=== PATIENT | male | born 1955 | race Caucasian/White ===

== ENCOUNTER 2018-01-11 17:53 | Inpatient (IN) | payer MEDICAID, OTHER ==
[~2018-01-11] VITALS: Ht 175.3 cm; Wt 79.4 kg
[2018-01-11 18:31] LABS: BASOPHILS % (AUTO) 0.8 % (0.0-2.0); EOSINOPHILS # (AUTO) 0.2 K/uL (0.0-0.7); EOSINOPHILS % (AUTO) 3.4 % (0.0-7.0); HEMATOCRIT 32.6 % (36.7-47.1); HEMOGLOBIN 11.2 g/dL (12.5-16.3); LYMPHOCYTES # (AUTO) 1.5 K/uL (20.0-40.0); LYMPHOCYTES % (AUTO) 27.1 % (20.5-51.5); MEAN CORPUSCULAR HEMOGLOBIN 36.3 uug (23.8-33.4); MEAN CORPUSCULAR HGB CONC 34 g/dL (32.5-36.3); MEAN CORPUSCULAR VOLUME 105.9 fL (73.0-96.2); MONOCYTES # (AUTO) 0.9 K/uL (2.0-10.0); MONOCYTES % (AUTO) 16.5 % (0.0-11.0); NEUTROPHILS # (AUTO) 2.8 K/uL (1.8-8.9); NEUTROPHILS % (AUTO) 52.2 % (38.5-71.5); RED BLOOD CELL COUNT(AUTO) 3.08 MIL/uL (4.06-5.63); WHITE BLOOD COUNT (AUTO) 5.4 K/uL (3.6-10.2)
[2018-01-11 18:38] LABS: ACETAMINOPHEN 2.4 ug/mL (10-30); ALANINE AMINOTRANSFERASE 18 U/L (16-63); ALKALINE PHOSPHATASE 222 U/L (50-136); ASPARTATE AMINOTRANSFERASE 34 U/L (15-37); BILIRUBIN,DIRECT 0.3 mg/dL (0.0-0.2); CARBON DIOXIDE 26 mmol/L (21-32); CHLORIDE 104 mmol/L (98-107); CREATININE 1.2 mg/dL (0.6-1.3); GLUCOSE 122 mg/dL (74-106); TOTAL PROTEIN, SERUM 7.7 g/dL (6.4-8.2); UREA NITROGEN, BLOOD 17 mg/dL (7-18)
[2018-01-11 18:40] LABS: ETHANOL < 3 MG/DL (0-0)
[2018-01-11 18:46] LABS: PLATELET COUNT (AUTO) 48 K/uL (152-348)
--- NOTE | 2018-01-11 18:55 | NUR ---
patient seen and examine by Dr. Davenport
[2018-01-11 19:04] LABS: BAND % (MANUAL) 2 % (0-10); EOSINOPHILS % (MANUAL) 5 % (0-8); LYMPHOCYTES % (MANUAL) 31 % (20-40); MONOCYTES % (MANUAL) 11 % (2-10); MYELOCYTES % 1 % (0-0); NEUTROPHILS % (MANUAL) 50 % (42-75)
[2018-01-11] MEDS ORDERED: HYDR-548 PO (19:04)
[2018-01-11] MEDS ORDERED: SPIR100T5 PO (19:04)
[2018-01-11] MEDS ORDERED: CYCL5TAB PO (19:04)
[2018-01-11] MEDS ORDERED: LACT10SO7 PO (19:04)
[2018-01-11] MEDS ORDERED: MELA3TAB PO (19:04)
[2018-01-11] MEDS ORDERED: ALBU8.5H8 IH (19:04)
[2018-01-11] MEDS ORDERED: NICO-670 TD (19:04)
[2018-01-11] MEDS ORDERED: FURO40TA5 PO (19:04)
[2018-01-11] MEDS ORDERED: DOCU-141 PO (19:04)
[2018-01-11] MEDS ORDERED: METH10TA2 PO (19:04)
--- NOTE | 2018-01-11 19:06 | NUR ---
report given to incoming shift.
[2018-01-11] MEDS ORDERED: CEFEPIME HCL 1 G in IV DEXTROSE 5% 50 ML IV ONE (19:45)
[2018-01-11] MEDS ORDERED: GENTAMICIN SULFATE INJ 80 MG in IV DEXTROSE 5% 100 ML IV ONE (19:45)
[2018-01-11] MEDS ORDERED: IV NORMAL SALINE 1000 ML BAG IV ONE (19:45)
--- NOTE | 2018-01-11 21:59 | NUR ---
Pt. admitted to Telemetry , under care of Dr. Padilla. Belongs List completed. MRSA swab done. Report given to Todd ASENCIO.
--- NOTE | 2018-01-11 22:20 | NUR ---
RECEIVED REPORT BY PHONE FROM GABRIELLA/LONG WALL MINING MACHINE TENDER AND GOT PT VIA WHEELCHAIR. ASKED FOR CC,PT STATED THAT" I HAVE VERY BAD NECK PAIN.YOU DON'T KNOW WHAT'S GOING ON WITH ME". UPON THIS TIME,PT'S A/A/O X3,ON HARD COLLAR:PER PT STATED THAT "I HAVE IT LONG TIME".PT C/O SO MUCH PAIN AND STATED THAT"I NEED MORPHINE",PT HAD PICC LINE X2 LUMENS AT RT.UPPER ARM:CLEAN AND DRY;D/S WAS CHANGED ON 12/06/17;EDUCATED TO PT THAT I HAVE TO CHANGE IT PER POLICY,HE VERBALIZED UNDERSTANDING. CALLED FOR PAIN MEDICATION PT REQUESTED.TELEMETRY'S APPLIED.
[2018-01-11 22:30] VITALS: BP 118/68
[2018-01-11] MEDS ORDERED: HYDROCODONE/APAP 10-325 MG TABLET PO PRN (23:00)
--- NOTE | 2018-01-11 23:30 | NUR ---
CALLED FOR THE SECOND TIME PER PT REQUESTED FOR PAIN MEDICATION;ORDER'S GIVEN AND OK TO USE PICC LINE NOTED.PICC LINE CARE TO PT,AT THE FIRST TIME PT REFUSED TO CHANGE IT;REINFORCED TO PT REGARDING PT SAFETY;LATER PT VERBALIZED UNDERSTANDING NOTED.MORPHINE 2 MG IVP X1 TO PT;SAFETY REINFORCED.KEPT CALL-LIGHT WITHIN REACH
[2018-01-11] MEDS ORDERED: MORPHINE SULFATE 2 MG/1 ML DISP.SYRIN IV PRN (23:45)
[2018-01-11] MEDS: MORPHINE SULFATE 4 MG/1 ML DISP.SYRIN IV PRN (23:58)
[2018-01-12] VITALS: BP 112/59
[2018-01-12 04:00] VITALS: BP 116/57
[2018-01-12] MEDS: MORPHINE SULFATE 4 MG/1 ML DISP.SYRIN IV PRN ×3 (05:43→21:09)
--- NOTE | 2018-01-12 06:00 | NUR ---
PT SLEPT WELL AFTER GOT MORPHINE,STATED THAT IT'S CONTROLLED MY PAIN.NO DISTRESS NOTED IN THE SHIFT.PT DENIED OF ANY DISCOMFORT AT THIS TIME.TELEMETRY'S SR 96/MIN.
[2018-01-12 06:53] LABS: BILIRUBIN,DIRECT 0.5 mg/dL (0.0-0.2); BILIRUBIN,TOTAL 1.5 mg/dL (0.2-1.0)
[2018-01-12 07:08] LABS: BASOPHILS % (AUTO) 0.7 % (0.0-2.0); EOSINOPHILS # (AUTO) 0.1 K/uL (0.0-0.7); EOSINOPHILS % (AUTO) 3.4 % (0.0-7.0); HEMATOCRIT 30.2 % (36.7-47.1); HEMOGLOBIN 10.5 g/dL (12.5-16.3); LYMPHOCYTES # (AUTO) 1.2 K/uL (20.0-40.0); MEAN CORPUSCULAR HEMOGLOBIN 36.2 uug (23.8-33.4); MEAN CORPUSCULAR HGB CONC 35 g/dL (32.5-36.3); MEAN CORPUSCULAR VOLUME 104.6 fL (73.0-96.2); MONOCYTES # (AUTO) 0.6 K/uL (2.0-10.0); MONOCYTES % (AUTO) 16.7 % (0.0-11.0); NEUTROPHILS # (AUTO) 1.7 K/uL (1.8-8.9); NEUTROPHILS % (AUTO) 46.2 % (38.5-71.5); RED BLOOD CELL COUNT(AUTO) 2.89 MIL/uL (4.06-5.63)
[2018-01-12 07:26] LABS: PLATELET COUNT (AUTO) 38 K/uL (152-348); WHITE BLOOD COUNT (AUTO) 3.8 K/uL (3.6-10.2)
[2018-01-12] MEDS ORDERED: ALBUTEROL SULFATE 8 GM HFA.AER.AD IH PRN (07:30)
[2018-01-12] MEDS ORDERED: HYDROCODONE/APAP 10-325 MG TABLET PO PRN ×2 (07:30→14:45)
[2018-01-12] MEDS ORDERED: MELATONIN 3 MG TABLET PO PRN (07:30)
[2018-01-12] MEDS ORDERED: ALBUTEROL SULFATE 2.5 MG/3 ML NEBU NEB PRN (08:00)
[2018-01-12 08:24] LABS: EOSINOPHILS % (MANUAL) 2 % (0-8); LYMPHOCYTES % (MANUAL) 35 % (20-40); MONOCYTES % (MANUAL) 15 % (2-10); NEUTROPHILS % (MANUAL) 48 % (42-75)
[2018-01-12] MEDS: NICOTINE 7 MG/24HR PATCH TD SCH ×2 (09:00→09:11)
[2018-01-12] MEDS: SPIRONOLACTONE 100 MG TABLET PO SCH (09:11)
[2018-01-12] MEDS: DOCUSATE SODIUM 100 MG CAPSULE PO SCH (09:11)
[2018-01-12] MEDS: LACTULOSE 20 G/30 ML LIQUID UDC PO SCH ×4 (09:11→21:09)
[2018-01-12] MEDS: FUROSEMIDE 40 MG TABLET PO SCH (10:00)
[2018-01-12] MEDS: METHADONE HCL 10 MG TABLET PO SCH (10:16)
[2018-01-12 11:44] VITALS: BP 108/69
[2018-01-12 13:59] LABS: *BILIRUBIN,URIN NEGATIVE (NEGATIVE); *BLOOD, URINE NEGATIVE (NEGATIVE); *CLARITY,URINE HAZY (CLEAR); *COLOR,URINE DARK YELLOW (YELLOW); *KETONES,URINE NEGATIVE (NEGATIVE); *PROTEIN,URINE NEGATIVE (NEGATIVE); LEUKOCYTE ESTERASE ,URINE NEGATIVE (NEGATIVE); NITRITE, URINE NEGATIVE (NEGATIVE); UGLUCOSE NEGATIVE (NEGATIVE)
[2018-01-12] MEDS ORDERED: CYCLOBENZAPRINE HCL 10 MG TABLET PO PRN (14:00)
[2018-01-12 14:02] LABS: *CREATININE,URINE 207.7 mg/dL (30-125); *URINE TOTAL PROTEIN RANDOM 8.3 mg/dL (<150/24HR)
[2018-01-12 14:16] LABS: BACTERIA,URINE NONE SEEN /HPF (NONE SEEN); MUCUS,URINE FEW /LPF (0-FEW); RBC,URINE 0-3 /HPF (0-3); SQUAMOUS EPITHELIAL CELL,UR FEW /HPF (NONE SEEN); WBC,URINE 0-3 /HPF (0-3)
[2018-01-12 16:13] VITALS: BP 100/61
--- NOTE | 2018-01-12 16:45 | NUR ---
RECEIVED FAX FROM [facility] REGARDING PATIENT'S IV MEDICATION. MD NOTIFIED. AWAITING FOR CALL BACK/ORDERS.
--- NOTE | 2018-01-12 18:21 | NUR ---
END OF SHIFT: PATIENT AOX3, ABLE TO AMBULATING INDEPENDENTLY AROUND THE NURSING UNIT. PATIENT WEARING A NECK BRACE AT ALL TIMES. VITAL SIGNS STABLE THROUGHOUT THE SHIFT. IV DOUBLE LUMEN PICC LINE IN PLACE TO RIGHT FOREARM, LUMENS FLUSHED WITH NS AND BLOOD RETURN PRESENT TO BOTH LUMENS. PATIENT DOES COMPLAIN OF PAIN TO NECK AND SHOULDERS AND HAS BEEN GIVEN METHADONE AND MORPHINE FOR PAIN ORDERED BY MD. PATIENT IS SR WITH PVC'S ON TELEMETRY.
--- NOTE | 2018-01-12 18:55 | NUR ---
FOLLOW UP/SECOND CALL TO MD REGARDING PATIENT'S ANTIBIOTIC IV MEDICATION CEFTRIAXONE 2G Q24HR PER [facility]. WAITING FOR CALL BACK. WILL ENDORSE TO [employer]UNITY FUNDRAISER RN.
--- NOTE | 2018-01-12 19:30 | NUR ---
Patient in stable condition at start of shift, lying down comfortably with no acute distress. BP slightly elevated at 156/69 d/t neck pain per patient. Will medicate per MD order & reassess pain level. Pertinent assessment completed. Noted with a neck brace. Patient has a double lumen PICC line in the RUE which is flushing well & locked. Patient worried about his IV ATBs that he was taking at the SNF. Per day shift nurse, waiting on a call back from Dr. Sterling to give orders. Call light within reach. Will continue to monitor through shift.
[2018-01-12 19:33] VITALS: BP 156/69
--- NOTE | 2018-01-12 21:15 | NUR ---
Spoke with Dr. Sterling regarding ATB order that patient was taking previously at the SNF. New order from , Rocephin 2g IV every 24 hours with no stop date for osteomyelitis. Will carry out order & continue to monitor.
[2018-01-12] MEDS ORDERED: CEFTRIAXONE 2 G VIAL IV SCH (23:30)
[2018-01-13] MEDS ORDERED: CEFTRIAXONE 2 G in IV DEXTROSE 5% 100 ML IV SCH (00:30)
[2018-01-13] MEDS ORDERED: CEFTRIAXONE 1 G VIAL ONE (00:36)
[2018-01-13] MEDS: MORPHINE SULFATE 4 MG/1 ML DISP.SYRIN IV PRN ×3 (02:24→10:38)
[2018-01-13 03:40] VITALS: BP 100/57
[2018-01-13 06:16] LABS: EOSINOPHILS # (AUTO) 0.1 K/uL (0.0-0.7); EOSINOPHILS % (AUTO) 4.7 % (0.0-7.0); HEMOGLOBIN 10.2 g/dL (12.5-16.3); LYMPHOCYTES # (AUTO) 0.9 K/uL (20.0-40.0); MEAN CORPUSCULAR HEMOGLOBIN 36.1 uug (23.8-33.4); MEAN CORPUSCULAR HGB CONC 35 g/dL (32.5-36.3); MONOCYTES # (AUTO) 0.5 K/uL (2.0-10.0); NEUTROPHILS # (AUTO) 1.1 K/uL (1.8-8.9)
[2018-01-13 06:17] LABS: *AMPHETAMINE, URINE NEGATIVE (NEGATIVE); *BARBITURATE, URINE NEGATIVE (NEGATIVE); *CANNABINOID, URINE NEGATIVE (NEGATIVE); *COCCAINE, URINE NEGATIVE (NEGATIVE); *OPIATE, URINE POSITIVE (NEGATIVE); *PHENCYCLIDINE SCREEN,URINE NEGATIVE (NEGATIVE)
[2018-01-13 06:19] LABS: BASOPHILS % (AUTO) 0.8 % (0.0-2.0); HEMATOCRIT 29.2 % (36.7-47.1); LYMPHOCYTES % (AUTO) 34.5 % (20.5-51.5); MEAN CORPUSCULAR VOLUME 103.2 fL (73.0-96.2); MONOCYTES % (AUTO) 18.7 % (0.0-11.0); NEUTROPHILS % (AUTO) 41.3 % (38.5-71.5); RED BLOOD CELL COUNT(AUTO) 2.83 MIL/uL (4.06-5.63); WHITE BLOOD COUNT (AUTO) 2.7 K/uL (3.6-10.2)
[2018-01-13 06:28] LABS: PLATELET COUNT (AUTO) 31 K/uL (152-348)
--- NOTE | 2018-01-13 06:33 | NUR ---
Paged screwhead stoner and polisher MD Sterling for critical lab value. Platelet is at 31. Per MD, "Will come in shortly and take care of it". Will continue to monitor patient.
[2018-01-13 06:56] LABS: CREATININE 0.9 mg/dL (0.6-1.3); MAGNESIUM 1.7 mg/dL (1.8-2.4); PHOSPHOROUS 3.5 mg/dL (2.5-4.9); POTASSIUM 3.8 mmol/L (3.5-5.1)
[2018-01-13] MEDS: METHADONE HCL 10 MG TABLET PO SCH (08:00)
[2018-01-13] MEDS: DOCUSATE SODIUM 100 MG CAPSULE PO SCH (08:00)
[2018-01-13] MEDS: LACTULOSE 20 G/30 ML LIQUID UDC PO SCH ×2 (08:00→12:05)
[2018-01-13] MEDS: SPIRONOLACTONE 100 MG TABLET PO SCH (08:00)
[2018-01-13 08:49] LABS: EOSINOPHILS % (MANUAL) 7 % (0-8); LYMPHOCYTES % (MANUAL) 38 % (20-40); MONOCYTES % (MANUAL) 8 % (2-10); NEUTROPHILS % (MANUAL) 47 % (42-75)
[2018-01-13] MEDS ORDERED: CEFTRIAXONE 2 G VIAL IV SCH (09:00)
[2018-01-13] MEDS ORDERED: NICOTINE 21 MG/24HR PATCH TD SCH (09:00)
[2018-01-13] MEDS: FUROSEMIDE 40 MG TABLET PO SCH (09:00)
[2018-01-13 11:43] VITALS: BP 114/70
[2018-01-13] MEDS ORDERED: MAGNESIUM SULFATE/D5W 100 ML IV SCH (14:45)
[2018-01-13] MEDS ORDERED: MAGNESIUM OXIDE 400 MG TABLET PO ONE (15:00)
[2018-01-13 15:43] VITALS: BP 109/75
--- NOTE | 2018-01-13 16:12 | NUR ---
EDUCATION AND CONTRAINDICATION GIVEN TO THE PT PT STILL REFUSING TO STAY IN THE HOSPITAL
--- NOTE | 2018-01-13 16:12 | NUR ---
PT REFUSING TO STAY IN THE HOSPITAL AND REFUSING THE CARE PT SAID HE WILL GO HOME DR BARNES NOTIFIED REMOVED THE PICCLINE ,EDUCATION GIVEN TO THE PT ,PT WAS DRESSED IN PROPER CLOTHING ,AND LEFT THE HOSPITAL VIA WALKING FROM THE HOSPITAL CHARGE NURSE AND NURSING BOX PERSON NOTIFIED
== END 2018-01-13 16:10 | disposition left against medical advice (07) | DRG 279 ==
LOC: ER 17:57 → TELE 21:45 → MED 01-12 15:30
PROVIDERS: ADMIT Internal Medicine Nephrology; ATTEND Internal Medicine
DX: K72.90 Hepatic failure, unspecified without coma (principal); D61.818 Other pancytopenia; K76.6 Portal hypertension; F20.9 Schizophrenia, unspecified; M86.9 Osteomyelitis, unspecified; B19.20 Unspecified viral hepatitis C without hepatic coma; M46.42 Discitis, unspecified, cervical region; K74.60 Unspecified cirrhosis of liver; Z86.61 Personal history of infections of the central nervous system; Z79.891 Long term (current) use of opiate analgesic; J45.909 Unspecified asthma, uncomplicated
CPT/HCPCS: 36415; 70030-TC; 70450; 71045; 80307; 83605; 83735; 84100; 84156; 84300; 84443; 85025; 85730; 87040; 87086; 93005; 97530; 97535; A4663; A9150; G0480; G0480-TC; J0696; J2270; J7040; J7060